=== PATIENT | female | born 1990 | race Caucasian/White ===

== ENCOUNTER 2019-12-14 | Emergency (ER) | payer SELFPAY ==
[~2019-12-14] MED LIST: AUGMENTIN500 MG OR; CEPHALEXIN500 MG OR; ELIMITE5 % EX; FLAGYL500 MG PO; FLEXERIL10 MG PO; HURRICAINE201 VA; MACROBID100 MG PO; NAPROSYN500 MG PO; NO HOME MEDS; ORTHO TRI-CY OR; ZOFRAN ODT8 MG PO
[2019-12-14 05:25] LABS: HEMATOCRIT 45.6 % (37.0-47.0); HEMOGLOBIN 15.4 g/dl (12.0-16.0); IMMATURE GRANULOCYTES 0.4 % (0.0-5.0); MEAN CELL VOLUME 92.5 fL CALC (80.0-100.0); MEAN CORPUSCULAR HGB 31.2 pG CALC (26.0-32.0); MEAN CORPUSCULAR HGB CONC 33.8 g/L CALC (32.0-36.0); NEUT# 12.34 thou/uL (2.00-7.15); RED BLOOD COUNT 4.93 mill/uL (4.20-5.60)
[2019-12-14 05:35] LABS: URINE BLOOD DIPSTICK SMALL (NEGATIVE); URINE COLOR YELLOW; URINE GLUCOSE - DIPSTICK NEGATIVE (NEGATIVE); URINE KETONE TRACE mg/dL (NEGATIVE); URINE LEUK ESTERASE NEGATIVE (NEGATIVE); URINE PH 6.5 (4.5-8.0); URINE PROTEIN - DIPSTICK 30 mg/dL (NEG-TRACE); URINE UROBILINOGEN - DIPSTICK 0.2 E.U./dL (0.2)
[2019-12-14 05:45] LABS: ALBUMIN 5.1 g/dL (3.2-5.0); ALKALINE PHOSPHATASE 100 u/l (38-126); ANION GAP 16 (6-22 (CALC)); BILIRUBIN, TOTAL 1.1 mg/dL (0.0-1.4); BUN 12 mg/dL (7-17); BUN/CREATININE RATIO 18 (12-20 (CALC)); CARBON DIOXIDE 24 mmol/l (22-30); CHLORIDE 103 mmol/l (95-108); CREATININE 0.7 mg/dL (0.5-1.0); GFR > 60 ML/MIN (>=60 (CALC)); GFR FOR AFR.AMER. > 60 ML/MIN (>=60 (CALC)); LIPASE 78 u/l (23-300); POTASSIUM 3.8 mmol/l (3.5-5.1); SGOT/AST 25 u/l (14-36); SODIUM 139 mmol/l (137-146); TOTAL PROTEIN 8.8 g/dL (6.3-8.2)
[2019-12-14 05:47] LABS: URINE BILIRUBIN - DIPSTICK SMALL (NEGATIVE); URINE NITRITE - DIPSTICK POSITIVE (Negative)
[2019-12-14 05:50] LABS: URINE BACTERIA MANY hpf; URINE EPITHELIAL CELLS FEW EPI/hpf (0-FEW)
[2019-12-14] MEDS ORDERED: TRAMADOL HYDROC50 MG PO (07:15)
[2019-12-14] MEDS ORDERED: ZOFRAN4 M1 PO (07:15)
[2019-12-14] MEDS ORDERED: BACTRIM DS1 TAB PO (07:15)
== END 2019-12-14 08:30 | disposition home or self-care (01) | DRG 392 ==
DX: K52.9 Noninfective gastroenteritis and colitis, unspecified (principal); N39.0 Urinary tract infection, site not specified; E86.0 Dehydration; N83.292 Other ovarian cyst, left side
CPT/HCPCS: S0164

== ENCOUNTER 2020-09-21 20:55 | Emergency (ER) | payer OTHER ==
[~2020-09-21] VITALS: Ht 165.1 cm; Wt 54.0 kg
[~2020-09-21 20:55] MED LIST changes: +BACTRIM DS1 TAB PO; +TRAMADOL HYDROC50 MG PO; +ZOFRAN4 M1 PO
[2020-09-21] MEDS ORDERED: TRAMADOL HYDROC50 MG PO (21:59)
[2020-09-21 22:35] VITALS: BP 112/66
== END 2020-09-21 22:35 | disposition home or self-care (01) | DRG 563 ==
LOC: ED 20:55
DX: S92.512A Displaced fracture of proximal phalanx of left lesser toe(s), initial encounter for closed fracture (principal); S90.415A Abrasion, left lesser toe(s), initial encounter; W23.0XXA Caught, crushed, jammed, or pinched between moving objects, initial encounter; Y92.009 Unspecified place in unspecified non-institutional (private) residence as the place of occurrence of the external cause

== ENCOUNTER 2020-11-29 22:23 | Emergency (ER) | payer OTHER ==
[~2020-11-29] VITALS: Ht 165.1 cm; Wt 53.0 kg
[2020-11-29 23:09] LABS: HEMATOCRIT 44.3 % (37.0-47.0); HEMOGLOBIN 14.9 g/dl (12.0-16.0); IMMATURE GRANULOCYTES 0.3 % (0.0-5.0); MEAN CELL VOLUME 93.1 fL CALC (80.0-100.0); MEAN CORPUSCULAR HGB 31.3 pG CALC (26.0-32.0); MEAN CORPUSCULAR HGB CONC 33.6 g/dL CAL (32.0-36.0); NEUT# 13.57 thou/uL (2.00-7.15); RED BLOOD COUNT 4.76 mill/uL (4.20-5.60); RED CELL DISTRI WIDTH 11.6 % (11.5-15.5)
[2020-11-29 23:12] LABS: URINE BILIRUBIN - DIPSTICK NEGATIVE (NEGATIVE); URINE BLOOD DIPSTICK TRACE-LYSED (NEGATIVE); URINE COLOR YELLOW; URINE GLUCOSE - DIPSTICK NEGATIVE (NEGATIVE); URINE KETONE 15 mg/dL (NEGATIVE); URINE LEUK ESTERASE NEGATIVE (NEGATIVE); URINE NITRITE - DIPSTICK NEGATIVE (Negative); URINE PH 7.5 (4.5-8.0); URINE PROTEIN - DIPSTICK NEGATIVE (NEG-TRACE); URINE UROBILINOGEN - DIPSTICK 0.2 E.U./dL (0.2)
[2020-11-29] MEDS ORDERED: BIRTH CONTROL (23:21)
[2020-11-29 23:38] LABS: AMYLASE 92 u/l (30-110); LIPASE 180 u/l (23-300)
[2020-11-29 23:39] LABS: ALBUMIN 4.9 g/dL (3.2-5.0); ALKALINE PHOSPHATASE 84 u/l (38-126); ANION GAP 16 (6-22 (CALC)); BILIRUBIN, TOTAL 0.8 mg/dL (0.0-1.4); BUN 12 mg/dL (7-17); BUN/CREATININE RATIO 17 (12-20 (CALC)); CARBON DIOXIDE 23 mmol/l (22-30); CHLORIDE 104 mmol/l (95-108); CREATININE 0.7 mg/dL (0.5-1.0); GFR > 60 ML/MIN (>=60 (CALC)); GFR FOR AFR.AMER. > 60 ML/MIN (>=60 (CALC)); POTASSIUM 3.5 mmol/l (3.5-5.1); SGOT/AST 22 u/l (14-36); SODIUM 140 mmol/l (137-146); TOTAL PROTEIN 8.3 g/dL (6.3-8.2)
[2020-11-30] MEDS ORDERED: PHENERGAN25 MG RE (00:20)
[2020-11-30 00:35] VITALS: BP 96/62
== END 2020-11-30 00:35 | disposition home or self-care (01) | DRG 392 ==
LOC: ED 22:23
PROVIDERS: Family Medicine
DX: K52.9 Noninfective gastroenteritis and colitis, unspecified (principal)

== ENCOUNTER 2021-03-23 22:34 | Emergency (ER) | payer OTHER ==
[~2021-03-23 22:34] MED LIST changes: +BIRTH CONTROL; +PHENERGAN25 MG RE
[2021-03-23 23:15] LABS: HEMOGLOBIN 13.1 g/dl (12.0-16.0); IMMATURE GRANULOCYTES 0.6 % (0.0-5.0); MEAN CELL VOLUME 94.8 fL CALC (80.0-100.0); MEAN CORPUSCULAR HGB CONC 32.8 g/dL CAL (32.0-36.0); NEUT# 10.1 thou/uL (2.00-7.15); RED BLOOD COUNT 4.22 mill/uL (4.20-5.60); RED CELL DISTRI WIDTH 12.1 % (11.5-15.5)
[2021-03-23 23:34] LABS: ALKALINE PHOSPHATASE 78 u/l (38-126); ANION GAP 10 (6-22 (CALC)); BILIRUBIN, TOTAL 0.6 mg/dL (0.0-1.4); BUN 10 mg/dL (7-17); BUN/CREATININE RATIO 15 (12-20 (CALC)); CARBON DIOXIDE 27 mmol/l (22-30); CHLORIDE 99 mmol/l (95-108); CREATININE 0.7 mg/dL (0.5-1.0); GFR > 60 ML/MIN (>=60 (CALC)); GFR FOR AFR.AMER. > 60 ML/MIN (>=60 (CALC)); POTASSIUM 3.4 mmol/l (3.5-5.1); SGOT/AST 19 u/l (14-36); SODIUM 133 mmol/l (137-146); TOTAL PROTEIN 6.9 g/dL (6.3-8.2)
[2021-03-24] MEDS ORDERED: LOMOTIL2.5 MG PO (01:32)
[2021-03-24 01:51] VITALS: BP 115/68
[2021-03-25] MEDS ORDERED: DICYCLOMINE HYD10 MG PO (11:34)
[2021-03-25] MEDS ORDERED: METRONIDAZOL500 MG PO (11:37)
[2021-03-25] MEDS ORDERED: CIPROFLOXACN500 MG PO (11:38)
== END 2021-03-24 01:51 | disposition home or self-care (01) | DRG 392 ==
LOC: ED 22:34
PROVIDERS: Family Medicine
DX: A08.4 Viral intestinal infection, unspecified (principal); Z20.822 Contact with and (suspected) exposure to COVID-19

== ENCOUNTER 2021-03-24 17:41 | Observation (INO) | payer OTHER ==
[~2021-03-24] VITALS: Ht 167.6 cm; Wt 64.0 kg
[~2021-03-24 17:41] MED LIST changes: +LOMOTIL2.5 MG PO
--- NOTE | 2021-03-24 17:56 | NUR ---
WALKED TO HER ROOM WITHOUT ASSISTANCE
--- NOTE | 2021-03-24 18:10 | NUR ---
ALSO REPORTS DIARRHEA SINCE FRIDAY MORE THAN 20 TIMES PER DAY, NOTIFIED PROVIDER OF ADDITIONAL INFORMATION
[2021-03-24 18:49] LABS: HEMATOCRIT 41.9 % (37.0-47.0); HEMOGLOBIN 13.8 g/dl (12.0-16.0); IMMATURE GRANULOCYTES 0.6 % (0.0-5.0); MEAN CELL VOLUME 94.6 fL CALC (80.0-100.0); MEAN CORPUSCULAR HGB 31.2 pG CALC (26.0-32.0); MEAN CORPUSCULAR HGB CONC 32.9 g/dL CAL (32.0-36.0); NEUT# 16.03 thou/uL (2.00-7.15); RED BLOOD COUNT 4.43 mill/uL (4.20-5.60); RED CELL DISTRI WIDTH 12.2 % (11.5-15.5)
[2021-03-24 19:03] LABS: ALBUMIN 3.7 g/dL (3.2-5.0); ALKALINE PHOSPHATASE 69 u/l (38-126); AMYLASE 68 u/l (30-110); ANION GAP 12 (6-22 (CALC)); BILIRUBIN, TOTAL 0.6 mg/dL (0.0-1.4); BUN 7 mg/dL (7-17); BUN/CREATININE RATIO 10 (12-20 (CALC)); CARBON DIOXIDE 24 mmol/l (22-30); CHLORIDE 99 mmol/l (95-108); CREATININE 0.7 mg/dL (0.5-1.0); GFR > 60 ML/MIN (>=60 (CALC)); GFR FOR AFR.AMER. > 60 ML/MIN (>=60 (CALC)); LIPASE 163 u/l (23-300); SGOT/AST 21 u/l (14-36); SODIUM 132 mmol/l (137-146); TOTAL PROTEIN 6.8 g/dL (6.3-8.2)
--- NOTE | 2021-03-24 19:13 | NUR ---
RECIEVED REPORT FROM TIFFANY STEPHENSON, ASSUMED CARE OF PATIENT.
--- NOTE | 2021-03-24 20:15 | NUR ---
Reassessment of patient completed. No distress noted.
--- NOTE | 2021-03-24 20:48 | NUR ---
PT PREFERS TO GET OUT OF THE REST OF HER CLOTHES AFTER SHE GETS TO HER ROOM. BELONGINGS INVENTORY COMPLETED.
--- NOTE | 2021-03-24 20:53 | NUR ---
Admission Note Report Given to: DAVID STEPHENSON Transported by: X Wheelchair Stretcher Transported with: X Nurse Transporter X Patent IV O2 Drapery Estimator Location: ICU X [facility]
[2021-03-24 21:10] VITALS: BP 102/66
--- NOTE | 2021-03-24 21:10 | NUR ---
PT ARRIVED TO MED SURG UNIT VIA WC ACCOMPANIED BY ED NURSE. PT APPEARS TO BE IN STABLE CONDITION AT THIS TIME. SELF AMBULATED TO THE BED AND ASSISTED POSITIONING FOR COMFORT. ORIENTED TO ROOM CALL SYSTEM, LIGHTS AND TV. V/S OBTAINED.
[2021-03-24 21:12] LABS: URINE BILIRUBIN - DIPSTICK NEGATIVE (NEGATIVE); URINE BLOOD DIPSTICK MODERATE (NEGATIVE); URINE COLOR YELLOW; URINE GLUCOSE - DIPSTICK NEGATIVE (NEGATIVE); URINE KETONE NEGATIVE (NEGATIVE); URINE LEUK ESTERASE NEGATIVE (NEGATIVE); URINE PROTEIN - DIPSTICK 30 mg/dL (NEG-TRACE); URINE SPECIFIC GRAVITY 1.015; URINE UROBILINOGEN - DIPSTICK 0.2 E.U./dL (0.2)
[2021-03-24 21:21] LABS: URINE NITRITE - DIPSTICK NEGATIVE (Negative)
--- NOTE | 2021-03-24 21:29 | NUR ---
PT ASSESSMENT AND ADMISSION COMPLETED AT THIS TIME. PT C/O NAUSEA, NO FURTHER VOMITING REPORTED SINCE 3PM. LAST STOOL OUTPUT WAS IN THE ED THIS EVENING AND WAS REPORTEDLY GREEN LOOSE. LUNG SOUNDS ARE CLEAR, HYPERACTIVE BOWEL SOUNDS. ABD IS FIRM AND TENDER TO PALPATION. NO SKIN ISSUES. LOCX4. PT DENIES MEDICAL HISTORY.
[2021-03-24 21:32] LABS: URINE BACTERIA FEW hpf; URINE SQUAMOUS EPITHELIAL CELL FEW EPI/hpf (0-FEW)
--- NOTE | 2021-03-24 21:32 | NUR ---
PHYSICIAN NOTIFIED OF C/O CONTINUED NAUSEA, NEW ORDERS WERE RECEIVED.
--- NOTE | 2021-03-25 00:25 | NUR ---
PT CALLED ASKING FOR SOMETHING TO DRINK OTHER THAN WATER. PROVIDED WITH SMALL CUP OF WARM CHICKEN BROTH, GINGERALE AND GATORAIDE TO CHOOSE FROM, ALONG WITH ICE CHIPS.
--- NOTE | 2021-03-25 01:07 | NUR ---
PT C/O CRAMPING IN LOWER ABD, MILD NAUSEA AND MULTIPLE LOOSE STOOL OUTPUT. PT MEDICATED ORDERS PROVIDE.
--- NOTE | 2021-03-25 03:00 | NUR ---
PT SLEEPING, NO S/O DISTRESS NOTED. CALL LIGHT AT SIDE.
[2021-03-25 04:32] VITALS: BP 100/58
--- NOTE | 2021-03-25 04:32 | NUR ---
PT CALLED ASKING FOR ADDITIONAL GATORAIDE. PROVIDED, BUT RECOMMENDED THAT SHE DRINK SMALL SIPS TO KEEP FROM AGITATING HER STOMACH. SHE STATED "IT'S NOT MY STOMACH, ITS MY LOWER INTESTINAL AREA." ATTEMPTS WERE MADE TO EDUCATE THE PT REGARDING HER CONDITION AND THE NEED TO COMPLETELY REST THE DIGESTIVE SYSTEM. V/S ASSESSED, HR 112 AT THIS TIME, TEMP 99.3.
[2021-03-25 05:19] LABS: IMMATURE GRANULOCYTES 0.9 % (0.0-5.0); MEAN CELL VOLUME 95.7 fL CALC (80.0-100.0); MEAN CORPUSCULAR HGB 31.2 pG CALC (26.0-32.0); MEAN CORPUSCULAR HGB CONC 32.6 g/dL CAL (32.0-36.0); NEUT# 9.24 thou/uL (2.00-7.15); RED BLOOD COUNT 3.75 mill/uL (4.20-5.60); RED CELL DISTRI WIDTH 12.2 % (11.5-15.5)
[2021-03-25 05:22] LABS: HEMATOCRIT 35.9 % (37.0-47.0); HEMOGLOBIN 11.7 g/dl (12.0-16.0)
[2021-03-25 05:42] LABS: ALKALINE PHOSPHATASE 50 u/l (38-126); ANION GAP 7 (6-22 (CALC)); BILIRUBIN, TOTAL 0.5 mg/dL (0.0-1.4); BUN 4 mg/dL (7-17); BUN/CREATININE RATIO 7 (12-20 (CALC)); CARBON DIOXIDE 23 mmol/l (22-30); CHLORIDE 103 mmol/l (95-108); CREATININE 0.6 mg/dL (0.5-1.0); GFR > 60 ML/MIN (>=60 (CALC)); GFR FOR AFR.AMER. > 60 ML/MIN (>=60 (CALC)); POTASSIUM 3.2 mmol/l (3.5-5.1); SGOT/AST 20 u/l (14-36); SODIUM 130 mmol/l (137-146)
[2021-03-25 05:47] LABS: ALBUMIN 2.6 g/dL (3.2-5.0); TOTAL PROTEIN 5.1 g/dL (6.3-8.2)
[2021-03-25 07:50] VITALS: BP 104/59
--- NOTE | 2021-03-25 07:50 | NUR ---
ASSESSMENT IS COMPLTED: IV SITE IS FREE FROM REDNESS OR EDEMA. HR IS REG,PULSES ARE STRONG X4, ABD IS SOFT WITH ACTIVE BS BREATH SOUNDS ARE CLEAR BILATERALLY, NO C/O PAIN VOICED. ONLY C/O DIARRHEA. CONTINUE TO OBSERVE AND MONITOR.
[2021-03-25] MEDS ORDERED: DICYCLOMINE HYD10 MG PO (11:34)
[2021-03-25] MEDS ORDERED: METRONIDAZOL500 MG PO (11:37)
[2021-03-25] MEDS ORDERED: CIPROFLOXACN500 MG PO (11:38)
--- NOTE | 2021-03-25 12:00 | NUR ---
PT IS RELAXING IN BED WITH NO DISTRESS NOTED.
--- NOTE | 2021-03-25 13:52 | NUR ---
PT TRANSPORTED TO HER CAR FOR DISCHARGE. ALL INSTRUCTIONS GIVEN AND VERBALIZED UNDERSTANDING. INCLUDING A (BRAT ) DIET.
--- NOTE | 2021-03-25 14:00 | NUR ---
Discharge instructions given. Patient verbalizes understanding of same. Discharged in stable condition via Wheelchair to Home with family. All belongings sent with pt.
== END 2021-03-25 13:52 | disposition home or self-care (01) | DRG 392 ==
LOC: ED 17:41 → ED-I 20:15 → ED 20:25 → MS2 20:26
PROVIDERS: Emergency Medicine; ADMIT Internal Medicine; ATTEND Internal Medicine
DX: K52.9 Noninfective gastroenteritis and colitis, unspecified (principal); E87.1 Hypo-osmolality and hyponatremia; E86.0 Dehydration; E87.6 Hypokalemia; Z20.822 Contact with and (suspected) exposure to COVID-19
CPT/HCPCS: G0378; Q9967

== ENCOUNTER 2021-11-26 01:18 | Emergency (ER) | payer OTHER ==
[~2021-11-26 01:18] MED LIST changes: +CIPROFLOXACN500 MG PO; +DICYCLOMINE HYD10 MG PO; +METRONIDAZOL500 MG PO
== END 2021-11-26 02:21 | disposition left against medical advice (07) | DRG 951 ==
LOC: ED 01:18 → LWOBS 02:21
DX: Z53.21 Procedure and treatment not carried out due to patient leaving prior to being seen by health care provider (principal)

== ENCOUNTER 2023-02-10 08:04 | Emergency (ER) | payer OTHER ==
[~2023-02-10] VITALS: Ht 167.6 cm; Wt 60.0 kg
[2023-02-10 08:12] VITALS: BP 109/70
[2023-02-10 08:31] VITALS: BP 104/67
[2023-02-10 08:46] LABS: URINE BILIRUBIN - DIPSTICK NEGATIVE (NEGATIVE); URINE BLOOD DIPSTICK NEGATIVE (NEGATIVE); URINE COLOR YELLOW; URINE GLUCOSE - DIPSTICK NEGATIVE (NEGATIVE); URINE KETONE NEGATIVE (NEGATIVE); URINE LEUK ESTERASE NEGATIVE (NEGATIVE); URINE PROTEIN - DIPSTICK NEGATIVE (NEG-TRACE); URINE SPECIFIC GRAVITY 1.025; URINE UROBILINOGEN - DIPSTICK 0.2 E.U./dL (0.2)
[2023-02-10 08:52] LABS: URINE NITRITE - DIPSTICK NEGATIVE (Negative)
[2023-02-10 08:55] LABS: ALKALINE PHOSPHATASE 75 u/l (38-126); BILIRUBIN, TOTAL 0.3 mg/dL (0.02-1.3); BUN 6 mg/dL (7-17); BUN/CREATININE RATIO 10 (12-20 (CALC)); CARBON DIOXIDE 27 mmol/l (22-30); CHLORIDE 103 mmol/l (95-108); CREATININE 0.6 mg/dL (0.5-1.0); GFR FOR AFR.AMER. > 60 ML/MIN (>=60 (CALC)); GFR OTHER RACES > 60 ML/MIN (>=60 (CALC)); LIPASE 121 u/l (23-300); POTASSIUM 3.8 mmol/l (3.5-5.1); SGOT/AST 27 u/l (14-36)
[2023-02-10 08:58] LABS: ALBUMIN 4.4 g/dL (3.2-5.0); ANION GAP 12 (6-22 (CALC)); SODIUM 138 mmol/l (137-146); TOTAL PROTEIN 7.5 g/dL (6.3-8.2)
[2023-02-10 08:59] LABS: BASO% 0.6 % (0-3); EOS% 0.8 % (0-8); HEMATOCRIT 39.4 % (37.0-47.0); HEMOGLOBIN 12.8 g/dl (12.0-16.0); IMMATURE GRANULOCYTES 0.2 % (0.0-5.0); LYMPH% 21.8 % (15-41); MEAN CELL VOLUME 94.9 fL CALC (80.0-100.0); MEAN CORPUSCULAR HGB 30.8 pG CALC (26.0-32.0); MEAN CORPUSCULAR HGB CONC 32.5 g/dL CAL (32.0-36.0); MONO% 10.8 % (2-13); NEUT# 3.28 thou/uL (2.00-7.15); NEUT% 65.8 % (42-76); RED BLOOD COUNT 4.15 mill/uL (4.20-5.60)
[2023-02-10 09:00] VITALS: BP 99/60
[2023-02-10 09:30] VITALS: BP 105/64
[2023-02-10] MEDS ORDERED: ZOFRAN4 MG/TAB PO (09:32)
[2023-02-10 10:00] VITALS: BP 97/64
== END 2023-02-10 10:07 | disposition home or self-care (01) | DRG 833 ==
LOC: ED 08:04
PROVIDERS: Family Medicine
DX: O21.9 Vomiting of pregnancy, unspecified (principal); Z3A.01 Less than 8 weeks gestation of pregnancy; Z20.822 Contact with and (suspected) exposure to COVID-19

== ENCOUNTER 2023-03-22 19:16 | Emergency (ER) | payer OTHER ==
[~2023-03-22] VITALS: Ht 167.6 cm; Wt 61.0 kg
[2023-03-22] VITALS (7 sets, daily range): BP systolic 92–119; BP diastolic 52–77
[~2023-03-22 19:16] MED LIST changes: +ZOFRAN4 MG/TAB PO
[2023-03-22 19:59] LABS: BASO% 0.3 % (0-3); EOS% 0.7 % (0-8); HEMATOCRIT 37.6 % (37.0-47.0); HEMOGLOBIN 12.5 g/dl (12.0-16.0); IMMATURE GRANULOCYTES 0.3 % (0.0-5.0); LYMPH% 30.9 % (15-41); MEAN CELL VOLUME 91.7 fL CALC (80.0-100.0); MEAN CORPUSCULAR HGB 30.5 pG CALC (26.0-32.0); MEAN CORPUSCULAR HGB CONC 33.2 g/dL CAL (32.0-36.0); MONO% 20.6 % (2-13); NEUT# 1.37 thou/uL (2.00-7.15); NEUT% 47.2 % (42-76); RED BLOOD COUNT 4.1 mill/uL (4.20-5.60); RED CELL DISTRI WIDTH 12.1 % (11.5-15.5)
[2023-03-22 20:26] LABS: ANION GAP 12 (6-22 (CALC)); BUN 6 mg/dL (7-17); BUN/CREATININE RATIO 12 (12-20 (CALC)); CARBON DIOXIDE 23 mmol/l (22-30); CHLORIDE 103 mmol/l (95-108); CREATININE 0.5 mg/dL (0.5-1.0); GFR FOR AFR.AMER. > 60 ML/MIN (>=60 (CALC)); GFR OTHER RACES > 60 ML/MIN (>=60 (CALC)); MAGNESIUM 1.7 mg/dL (1.6-2.3); POTASSIUM 3.5 mmol/l (3.5-5.1); SODIUM 135 mmol/l (137-146)
[2023-03-22] MEDS ORDERED: PROMETHAZINE HY25 M1 PO (20:37)
== END 2023-03-22 21:17 | disposition home or self-care (01) | DRG 833 ==
LOC: ED 19:16
PROVIDERS: Family Medicine
DX: O99.511 Diseases of the respiratory system complicating pregnancy, first trimester (principal); J10.2 Influenza due to other identified influenza virus with gastrointestinal manifestations; Z3A.12 12 weeks gestation of pregnancy